=== PATIENT | female | born 1975 | race Caucasian/White ===

== ENCOUNTER 2017-10-13 16:41 | Inpatient (IN) | payer OTHER ==
[~2017-10-13] VITALS: Ht 167.6 cm; Wt 61.8 kg
[2017-10-13 17:20] LABS: HEMATOCRIT 50.3 % (36.0-46.0); HEMOGLOBIN 17.9 G/DL (11.9-15.5); MCH 30.7 PG (29.0-34.0); MCHC 35.6 G/DL (30.0-36.0); MCV 86.3 FL (83-99); PLATELET COUNT 424 K/uL (156-360); RBC DIS.WIDTH-CV 14.2 % (11.8-14.6); RBC DIS.WIDTH-SD 44.5 % (39-53); RED BLOOD COUNT 5.83 M/uL (3.80-5.20); WHITE BLOOD COUNT 14.1 K/uL (4.1-10.2)
[2017-10-13 17:29] LABS: CHLORIDE 104 mEq/L (99-109); POTASSIUM 4.2 mEq/L (3.7-5.4); SODIUM 141 mEq/L (136-147)
[2017-10-13 17:31] LABS: GLUCOSE 106 mg/dL (70-99)
[2017-10-13 17:34] LABS: SERUM ETHYL ALCOHOL < 10 mg/dL
[2017-10-13 17:35] LABS: CREATININE 0.8 mg/dL (0.6-1.3); GFR ESTIMATE (CALCULATED) > 59 mL/min/
[2017-10-13 17:36] LABS: UREA NITROGEN (BUN) 13 mg/dL (9-23)
[2017-10-13 17:43] LABS: QUANTITATIVE HCG < 4.0 MIU/ML
[2017-10-13 18:09] LABS: AMPHETAMINE NEGATIVE (500 ng/mL); BARBITURATES NEGATIVE (200 ng/mL); BENZODIAZEPINES NEGATIVE (150 ng/mL); BUPRENORPHINE NEGATIVE (10 ng/mL); COCAINE NEGATIVE (150 ng/mL); METHADONE NEGATIVE (200 ng/mL); METHAMPHETAMINE NEGATIVE (500 ng/mL); OPIATES (MORPHINE) PRESUMPTIVE POSITIVE (100 ng/mL); OXYCODONE PRESUMPTIVE POSITIVE (100 ng/mL); PHENCYCLIDINE NEGATIVE (25 ng/mL); PROPOXYPHENE NEGATIVE (300 ng/mL); THC CANNABINOIDS NEGATIVE (50 ng/mL); TRICYCLIC ANTIDEPRESSANTS NEGATIVE (300 ng/mL)
[2017-10-13] MEDS ORDERED: ZOLOFT100 MG PO (19:54)
[2017-10-13] MEDS ORDERED: TRAMADOL HCL50 MG PO (19:55)
[2017-10-13] MEDS ORDERED: LYRICA150 MG PO (19:55)
[2017-10-13] MEDS ORDERED: MORPHINE SULFAT30 M5 PO (19:55)
[2017-10-14 07:30] VITALS: BP 107/53
[2017-10-14 15:46] VITALS: BP 108/67
[2017-10-15 07:30] VITALS: BP 106/56
[2017-10-15 15:56] VITALS: BP 101/50
[2017-10-16 08:06] VITALS: BP 114/54
[2017-10-16 15:38] VITALS: BP 115/54
[2017-10-17 08:03] VITALS: BP 99/55
[2017-10-17 15:45] VITALS: BP 112/53
[2017-10-18 07:34] VITALS: BP 108/56
[2017-10-18 15:47] VITALS: BP 105/54
[2017-10-19 07:44] VITALS: BP 116/63
[2017-10-19] MEDS ORDERED: KETOROLAC TROME10 MG PO (09:13)
[2017-10-19] MEDS ORDERED: MORPHINE SULFAT15 M1 PO (09:13)
[2017-10-19] MEDS ORDERED: LYRICA75 MG PO (09:14)
[2017-10-19] MEDS ORDERED: AVENTYL,PAMELOR50 MG PO (09:14)
== END 2017-10-19 10:47 | disposition home or self-care (01) | DRG 885 ==
LOC: EME 16:41 → 1WEST 19:42 → EDOF 19:42 → ENRESERV 20:51 → 1WEST 21:01
DX: F33.1 Major depressive disorder, recurrent, moderate (principal); G89.28 Other chronic postprocedural pain; R45.851 Suicidal ideations; G62.9 Polyneuropathy, unspecified; F45.42 Pain disorder with related psychological factors; Z79.891 Long term (current) use of opiate analgesic; Z79.899 Other long term (current) drug therapy; F17.200 Nicotine dependence, unspecified, uncomplicated; Z81.8 Family history of other mental and behavioral disorders
CPT/HCPCS: 80048; 80335 90; 84702; 84999; 85027; 90839; 97150 GO; 97165 GO; 99281; 99285; G0480